=== PATIENT | female | born 1985 | race American Indian/Alaskan Native ===

== ENCOUNTER 2017-03-08 12:39 | Emergency (ER) | payer SELFPAY ==
[2017-03-08 12:55] VITALS: BP 110/74
--- NOTE | 2017-03-08 13:39 | Emergency Department Report ---
ED ENT HPI - General Chief complaint: Sore Throat Stated complaint: SORE THROAT /FEVER Time Seen by Provider: 03/08/17 13:28 Source: patient Mode of arrival: Ambulatory Limitations: No Limitations - History of Present Illness Initial comments: pt is a 31 y/o aaf with hx of tonsil stones and recurrent pharyngitis who presents for sore throat and fever x 2 days , fever tmax: 101 F at home, associated symptoms include dysphagia however is tolerated po intake, symptoms are improved with otc ibupofen. MD complaint: sore throat Onset/Timin -: days(s) Location: throat Severity: moderate Severity scale (0 -10): 6 Quality: burning, sharp Consistency: intermittent Improves with: NSAID Worsens with: swallowing Context- Ear: recent illness Associated Symptoms: fever, pain with swallowing, sore throat. denies: tinnitus , hearing loss, discharge from ear, rhinorrhea - Related Data Previous Rx's Medication Instructions Recorded Last Taken Type Amoxicillin/K Clav Tab [Augmentin 1 tab PO Q12HR #20 tab 03/08/17 Unknown Rx 875 mg] Benzocaine/Menth/Cetylpyrd 8 each MM QID PRN #3 packet 03/08/17 Unknown Rx [Cepacol X Strength] Ibuprofen [Motrin 800 MG tab] 800 mg PO Q8HR PRN #30 tablet 03/08/17 Unknown Rx Allergies Allergy/AdvReac Type Severity Reaction Status Date / Time hydrocodone AdvReac Vomiting Verified 03/08/17 12:48 ED Dental HPI - General Chief complaint: Sore Throat Stated complaint: SORE THROAT /FEVER Time Seen by Provider: 03/08/17 13:28 Source: patient Mode of arrival: Ambulatory Limitations: No Limitations - Related Data Previous Rx's Medication Instructions Recorded Last Taken Type Amoxicillin/K Clav Tab [Augmentin 1 tab PO Q12HR #20 tab 03/08/17 Unknown Rx 875 mg] Benzocaine/Menth/Cetylpyrd 8 each MM QID PRN #3 packet 03/08/17 Unknown Rx [Cepacol X Strength] Ibuprofen [Motrin 800 MG tab] 800 mg PO Q8HR PRN #30 tablet 03/08/17 Unknown Rx Allergies Allergy/AdvReac Type Severity Reaction Status Date / Time hydrocodone AdvReac Vomiting Verified 03/08/17 12:48 ED Review of Systems ROS: Stated complaint: SORE THROAT /FEVER Other details as noted in HPI Constitutional: chills, fever, malaise. denies: diaphoresis, weakness Eyes: denies: eye pain, eye discharge, vision change ENT: throat pain. denies: ear pain, dental pain, hearing loss, congestion Respiratory: denies: cough, shortness of breath, wheezing Cardiovascular: denies: chest pain, palpitations Endocrine: no symptoms reported Gastrointestinal: denies: abdominal pain, nausea, diarrhea Genitourinary: denies: urgency, dysuria, discharge Musculoskeletal: denies: back pain, joint swelling, arthralgia Skin: denies: rash, lesions Neurological: denies: headache, weakness, paresthesias Psychiatric: denies: anxiety, depression Hematological/Lymphatic: denies: easy bleeding, easy bruising ED Past Medical Hx - Past Medical History Previous Medical History?: No - Surgical History Additional Surgical History: Left Oopherectomy (2006). left knee - Social History Smoking Status: Never Smoker Substance Use Type: Alcohol - Medications Home Medications: Home Medications Medication Instructions Recorded Confirmed Last Taken Type Amoxicillin/K Clav Tab [Augmentin 1 tab PO Q12HR #20 tab 03/08/17 Unknown Rx 875 mg] Benzocaine/Menth/Cetylpyrd 8 each MM QID PRN #3 packet 03/08/17 Unknown Rx [Cepacol X Strength] Ibuprofen [Motrin 800 MG tab] 800 mg PO Q8HR PRN #30 tablet 03/08/17 Unknown Rx ED Physical Exam - General Limitations: No Limitations General appearance: alert, in no apparent distress - Head Head exam: Present: atraumatic, normocephalic - Eye Eye exam: Present: normal appearance - ENT ENT exam: Present: mucous membranes moist, TM's normal bilaterally, normal external ear exam - Expanded ENT Exam Expanded Mouth exam: Present: normal external inspection, tongue normal. Absent: trismus , muffled voice, tongue elevation Teeth exam: Present: normal inspection Throat exam: Positive: tonsillar erythema, tonsillomegaly, tonsillar exudate. Negative: R peritonsillar mass, L peritonsillar mass - Neck Neck exam: Present: normal inspection, full ROM, lymphadenopathy. Absent: thyromegaly - Respiratory Respiratory exam: Present: normal lung sounds bilaterally. Absent: respiratory distress, wheezes, rales, rhonchi, stridor, chest wall tenderness, accessory muscle use, decreased breath sounds, prolonged expiratory - Cardiovascular Cardiovascular Exam: Present: regular rate, normal rhythm. Absent: systolic murmur, diastolic murmur, rubs, gallop - GI/Abdominal GI/Abdominal exam: Present: soft, normal bowel sounds - Rectal Rectal exam: Present: deferred - Extremities Exam Extremities exam: Present: normal inspection - Back Exam Back exam: Present: normal inspection - Neurological Exam Neurological exam: Present: alert, oriented X3 - Psychiatric Psychiatric exam: Present: normal affect, normal mood - Skin Skin exam: Present: warm, dry, intact, normal color. Absent: rash ED Course Vital Signs 03/08/17 12:49 Temperature 98.7 F Pulse Rate 100 H Respiratory 17 Rate Blood Pressure 110/74 O2 Sat by Pulse 97 Oximetry ED Medical Decision Making - Medical Decision Making pt is a 31 y/o aaf with hx of tonsil stones and recurrent pharyngitis who presents for sore throat and fever x 2 days , fever tmax: 101 F at home, associated symptoms include dysphagia however is tolerated po intake, symptoms are improved with otc ibupofen. exam: tms clear bilat no pain no erythema, nose ; patent no polpys no obstruction, pharynx: moderate erythema, bilat tonsilarmegally with yellow white exudate no abscess uvula midline airway is patent, no stidor lungs clear bilat all lobes no wheezing plan: given hx recurrent infection with tx with augmentin po x 10 days, follow up with ENT in 2 -3 days if symptoms not improving pt verbalized agreement and understanding with discharge plan. Critical care attestation.: If time is entered above; I have spent that time in minutes in the direct care of this critically ill patient, excluding procedure time. ED Disposition Clinical Impression: Pharyngitis Qualifiers: Pharyngitis/tonsillitis etiology: unspecified etiology Qualified Code(s): J02.9 - Acute pharyngitis, unspecified Disposition: TO HOME OR SELFCARE Is pt being admited?: No Does the pt Need Aspirin: No Condition: Good Instructions: Pharyngitis (ED) Prescriptions: Amoxicillin/K Clav Tab [Augmentin 875 mg] 1 tab PO Q12HR #20 tab Benzocaine/Menth/Cetylpyrd [Cepacol X Strength] 8 each MM QID PRN #3 packet PRN Reason: throat pain Ibuprofen [Motrin 800 MG tab] 800 mg PO Q8HR PRN #30 tablet PRN Reason: Pain Referrals: PRIMARY CARE,MD [Primary Care Provider] - 3-5 Days Forms: Work/School Release Form(ED) Time of Disposition: 13:47
== END 2017-03-08 13:56 | disposition home or self-care (01) ==
LOC: ED 12:39
DX: J02.9 Acute pharyngitis, unspecified (principal); R50.9 Fever, unspecified; Z88.6 Allergy status to analgesic agent
CPT/HCPCS: 87116; 87430; 99282